=== PATIENT | male | born 1945 | race Caucasian/White ===

== ENCOUNTER 2018-12-23 09:54 | Emergency (ER) | payer OTHER ==
[2018-12-23 10:26] LABS: #Basophils 0.1 thou/uL (0.0-0.2); #Eosinphils 0.2 thou/uL (0.0-0.7); #Lymphocytes 1.6 thou/uL (1.20-3.40); #Monocytes 1.4 thou/uL (0.11-0.59); #Neutrophils 6.8 thou/uL (1.40-6.50); %Basophils 0.7 % (0.0-1.0); %Eosinophils 2.2 % (0.0-10.0); %Lymphocytes 15.9 % (21.0-51.0); %Monocytes 13.6 % (0.0-10.0); %Neutrophils 67.6 % (42.0-75.0); Hemoglobin 12.4 g/dL (14.0-18.0); Mean Corpuscular Hemoglobin 28.3 pg (27.0-31.0); Mean Corpuscular Volume 88.6 fL (78.0-98.0); Platelet Count 399 thou/uL (130-400); RBC Distribution Width 15.4 % (11.5-14.5); Red Blood Cell (RBC) Count 4.39 mill/uL (4.70-6.10)
--- NOTE | 2018-12-23 10:28 | RAD ---
Portable chest: HISTORY: Shortness of breath COMPARISON: none FINDINGS: Lung shaw are clear. Heart and mediastinum appear unremarkable. Vascularity is normal. Visualized osseous structures unremarkable. IMPRESSION: No acute finding
[2018-12-23 10:54] LABS: ALT (SGPT) 14 U/L (8-55); AST (SGOT) 17 U/L (5-34); Albumin 4.5 g/dL (3.4-4.8); Alkaline Phosphatase 94 U/L (40-150); Anion Gap 17 mmol/L (10-20); BUN (Urea Nitrogen) 47 mg/dL (8.4-25.7); Bilirubin, Total 0.7 mg/dL (0.2-1.2); Calc. Creatinine Clearance 0 mL/min (70-130); Carbon Dioxide 26 mmol/L (23-31); Chloride 100 mmol/L (98-107); Estimated GFR-MDRD 45; Globulin 3.2 g/dL (2.4-3.5); Glucose 148 mg/dL (83-110); Potassium 4.9 mmol/L (3.5-5.1); Protein, Total 7.7 g/dL (5.8-8.1); Sodium 138 mmol/L (136-145)
[2018-12-23] MEDS ORDERED: ISOVUE-370 76%-LOCM 1 ML ONE (11:30)
--- NOTE | 2018-12-23 11:56 | CT ---
CT NECK WITH CONTRAST: Date: 12/23/18 Multiple axial tomograms obtained through neck with IV enhancement. INDICATION: Pain and swelling around the left ear and corner of jaw on the left. 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 History of prior carotid stent placemen t. FINDINGS: The left parotid gland appears slightly edematous with hazy stranding. It is slightly larger than the right. The findings may represent mild parotiditis given the history of tenderness at this site. The re is no focal fluid or abscess collection. The left submandibular gland appears surgically absent. There are surgical changes in the left subman dibular region extending into the left neck. There is resection of the left submandibular gland. The right submandibular gland appears atrophic. Thyroid unremarkable. Nasopharynx unremarkable. Oropharynx unremarkable. Parapharyngeal space and retropharyngeal space unremarkable. Bilateral carotid stents. There is luminal narrowing in the left carotid stent, although both stents appear patent. No evidence of adenopathy. Degenerative changes in the cervical spine. Paranasal sinuses and mastoids are well aerated. IMPRESSION: 1. Left parotid gland is mildly edematous and there are hazy inflammatory changes. Consider left par otiditis. 2. Evidence of prior left radical neck dissection as per history. 3. Carotid stents with mild luminal narrowing in both stents, although both stents appear patent. Findings discussed with Dr. Parisi. CODE CR. POS: OFF
== END 2018-12-23 12:24 | disposition home or self-care (01) ==
LOC: ERS 09:54
DX: J20.9 Acute bronchitis, unspecified (principal); K11.20 Sialoadenitis, unspecified; E11.9 Type 2 diabetes mellitus without complications; Z86.73 Personal history of transient ischemic attack (TIA), and cerebral infarction without residual deficits; I25.10 Atherosclerotic heart disease of native coronary artery without angina pectoris; F43.10 Post-traumatic stress disorder, unspecified
CPT/HCPCS: 36415; 70491; 71045; 80053; 84484; 85025; 93005; 94640; 96360; 96361; J7620; Q9966

== ENCOUNTER 2019-06-25 16:40 | Emergency (ER) | payer MEDICARE ==
[2019-06-25 17:05] LABS: #Basophils 0.1 thou/uL (0.0-0.2); #Eosinphils 0.6 thou/uL (0.0-0.7); #Lymphocytes 3.2 thou/uL (1.20-3.40); #Monocytes 1.4 thou/uL (0.11-0.59); #Neutrophils 5.5 thou/uL (1.40-6.50); %Basophils 0.8 % (0.0-1.0); %Eosinophils 5.3 % (0.0-10.0); %Lymphocytes 29.6 % (21.0-51.0); %Monocytes 13.1 % (0.0-10.0); %Neutrophils 51.2 % (42.0-75.0); Mean Corpuscular HGB CONC 30.3 g/dL (32.0-36.0); Mean Corpuscular Hemoglobin 25.6 pg (27.0-31.0); Mean Corpuscular Volume 84.4 fL (78.0-98.0); Mean Platelet Volume 6.1 fL (7.4-10.4); Platelet Count 424 thou/uL (130-400); RBC Distribution Width 16.2 % (11.5-14.5); White Blood Cell (WBC) Count 10.7 thou/uL (4.8-10.8)
--- NOTE | 2019-06-25 17:21 | RAD ---
Chest 2 views HISTORY: Productive cough. COMPARISON: 12/23/2018. FINDINGS: Cardiac silhouette and pulmonary vasculature are unremarkable. Mediastinum is midline. No c onfluent airspace consolidation, pneumothorax, or pleural fluid are evident. There are degenerative changes of the thoracic spine on the lateral view. IMPRESSION: No active cardiopulmonary abnormalities are demonstrated.
[2019-06-25 17:34] LABS: ALT (SGPT) 11 U/L (8-55); AST (SGOT) 17 U/L (5-34); Alkaline Phosphatase 86 U/L (40-110); Anion Gap 11 mmol/L (10-20); BUN (Urea Nitrogen) 27 mg/dL (8.4-25.7); Bilirubin, Total 0.6 mg/dL (0.2-1.2); Calc. Creatinine Clearance 0 mL/min (70-130); Calcium 9.5 mg/dL (7.8-10.44); Carbon Dioxide 30 mmol/L (23-31); Chloride 99 mmol/L (98-107); Estimated GFR-MDRD 63; Globulin 3.7 g/dL (2.4-3.5); Glucose 106 mg/dL (83-110); Protein, Total 7.7 g/dL (5.8-8.1); Sodium 136 mmol/L (136-145)
[2019-06-25] MEDS ORDERED: methylPREDNISolone Sod Succ/PF 125 MG/2 ML VIAL ONE (18:21)
[2019-06-25] MEDS ORDERED: Azithromycin 500 MG VIAL ONE (18:21)
--- NOTE | 2019-06-25 20:30 | CT ---
CT HEAD NONCONTRAST: History: Fall. Head injury. FINDINGS: There is no evidence of acute intracranial hemorrhage or infarct. Mild diffuse cortical atrophy. [employer] Team Lead darwin ischemic small vessel disease throughout the periventricular white matter of each cerebral hemisp here. Small area of encephalomalacia along the posterior paramidline portion of the right cerebellar hemisphere likely represents an old area of infarct. There is no mass effect or shift of midline stru ctures. Visualized paranasal sinuses remain well aerated. IMPRESSION: Chronic type findings. No acute intracranial abnormalities are demonstrated. POS: BST
--- NOTE | 2019-06-29 05:39 | PQF ---
[facility] POST DISCHARGE CLINICAL DOCUMENTATION IMPROVEMENT CLARIFICATION FORM l Todays Date: 06/28/2019 l Patients Name Goyo Massey l l Admit Date 06/25/19 l Disch Date 06/25/19 Build Manager Name Opalbenita Reid Email: [email or web address]: [phone] To be completed by Build Manager: Present Clinical Indicators - Signs / Symptoms Results and Location in Medical Record [ ] Documentation of: [ ] [ ] Documentation of: [ ] [ ] Documentation of: [ ] [ ] Documentation of: [ ] [ ] Risks [ ] [ ] [ ] Treatment [ ] Bronchitis Query for Specificity of Acute or Chronic of Bronchitis. [ ] [ ] To be completed by Physician: DR. Brianne MD, Karl The documentation in this patients record requires clarification to ensure coding compliance and accuracy. Check the appropriate box and include in your discharge summary. [ ] [ ] [ ] [ ] Please check this box if this does not apply to this patient [ ] Unable to determine [ ] Other diagnosis: Review the following information and exercise your independent professional judgment in responding to the clarification. Based upon the clinical findings, risk factors, and treatment, please clarify if you are treating one of the above probable or suspected diagnoses. Physician Signature: Date Time MTDD
== END 2019-06-25 20:45 | disposition home or self-care (01) ==
LOC: ERS 16:40
DX: J20.9 Acute bronchitis, unspecified (principal); E11.9 Type 2 diabetes mellitus without complications; I25.10 Atherosclerotic heart disease of native coronary artery without angina pectoris; F43.10 Post-traumatic stress disorder, unspecified; Z86.73 Personal history of transient ischemic attack (TIA), and cerebral infarction without residual deficits; Z85.46 Personal history of malignant neoplasm of prostate
CPT/HCPCS: 36415; 70450; 71046; 80053; 83605; 84484; 85025; 93005; 94640; 94760; 96365; 96366; 96375; J0456; J2930; J7620

== ENCOUNTER 2019-07-17 14:05 | Outpatient (CLI) | payer MEDICARE, OTHER ==
--- NOTE | 2019-07-17 14:53 | RAD ---
RADIOGRAPH CHEST 2 VIEWS: DATE: 07/17/2019 HISTORY: 73-year-old male with dyspnea FINDINGS: There is no airspace density, pulmonary edema, pleural effusion, pneumothorax, or cardiomegaly. IMPRESSION: No acute cardiopulmonary findings.
== END 2019-07-17 14:06 | disposition home or self-care (01) ==
LOC: RAD 14:05
PROVIDERS: ATTEND Internal Medicine Pulmonary Disease
DX: R06.00 Dyspnea, unspecified (principal)
CPT/HCPCS: 71046

== ENCOUNTER 2019-07-18 05:47 | Day surgery (SDC) | payer MEDICARE, OTHER ==
[2019-07-17 16:53] VITALS: BMI 22.4
[2019-07-18] MEDS ORDERED: Lidocaine 4% PF 5 ML AMP NEB SCH (06:30)
[2019-07-18] MEDS ORDERED: Sodium Chloride 0.9% 1,000 ML IV SCH (06:30)
[2019-07-18] MEDS ORDERED: Lidocaine 1% (PF) 30 ML VIAL ONE (06:44)
[2019-07-18] MEDS ORDERED: Fentanyl 100 MCG/2 ML VIAL ONE (07:06)
[2019-07-18] MEDS ORDERED: Benzocaine 20% Spray 60 ML CAN ONE (07:06)
[2019-07-18] MEDS ORDERED: Midazolam HCl 2 mg/2 ml Vial ONE (07:06)
--- NOTE | 2019-07-18 07:42 | HP ---
HISTORY OF PRESENT ILLNESS: A 73-year-old gentleman who was referred by the [facility] with several months of history of intermittent hemoptysis. The patient is unable to give any history. He is weak. He is status post treatment for head and neck cancer diagnosed in the . He received radiation surgery and appropriate intervention at [facility]. He has coughed up bright red blood one or two times a week now for several months. He had a CT of his neck done, both locally and in [place], which was negative. He saw a local ENT physician and I am told they recommended at that time no additional workup. Additionally, he has had a PEG placed now for about a month at [facility] in [place], [place], because of his dysphagia. He has requested that he see a svp chief marketing officer and therefore he was sent to our office. He has lost considerable weight. PAST MEDICAL HISTORY: Long list of multiple medical problems are outlined including a long list of medications also outlined. 1. Chronic ischemic heart disease. 2. Peripheral vascular disease. 3. Diabetes. 4. Hypertension. 5. Reflux. 6. Hypothyroidism. 7. Anemia. 8. Hyperlipidemia. 9. Bilateral carotid stenosis, on Plavix. 10. Spondylosis, cervical. 11. Post-traumatic stress syndrome. 12. . HOME MEDICATIONS: Long list including; 1. Buspirone 10 mg two tablets per PEG three times a day. 2. Celexa 40 mg per PEG. 3. Plavix 75 mg per PEG. 4. Cyclobenzaprine 10 mg, PEG. 5. Gabapentin 100, PEG. 6. Hydrocortisone ointment. 7. Insulin. 8. Synthroid 0.075. 9. Lisinopril 2.5. 10. Metformin 500 once a day. 11. Metoprolol 50 twice a day. 12. Nitroglycerin 0.3. 13. Omeprazole p.r.n. 14. Simvastatin 80. PAST SURGICAL HISTORY: Previous surgeries, radical neck, prostate, cardiac stents, PEG tube, skin cancer, carotid stents. SOCIAL HISTORY: Smoked in the past, quit smoking in the 60s. No alcohol. ALLERGIES: NO ALLERGIES. REVIEW OF SYSTEMS: Negative. PHYSICAL EXAMINATION: VITAL SIGNS: 97% sat on room air, pulse , blood pressure 120/80. GENERAL: In no distress. CHEST: Decreased breath sounds. No wheezing. CARDIAC: Normal S1, S2. No gallops. ABDOMEN: Soft. IMAGING: Chest x-ray was normal. ASSESSMENT: 1. Intermittent hemoptysis. 2. Previous head and neck cancer, recent PEG. 3. Peripheral vascular disease, diabetes, and coronary artery disease. PLAN: Diagnostic bronchoscopy in the morning. Other recommendations as above. Job ID: [id number]
--- NOTE | 2019-07-18 09:51 | OP ---
DATE OF PROCEDURE: 07/18/2019 INDICATIONS: 1. Recurrent hemoptysis, seven months' duration without any endobronchial disease. 2. No endobronchial disease, blood, or pus was seen in both lungs. 3. His left local cord appeared to be atrophied, appeared to be partially paralyzed. DESCRIPTION OF PROCEDURE: After informed consent from the patient and , the patient received DuoNeb with 4 mL of 4% lidocaine. During the procedure, he received only 1 mg of Versed. His throat and nose were prepped with lidocaine. Cetacaine was sprayed. The flexible video bronchoscope Olympus was passed by the right nostril. Pharynx and hypopharynx were visualized. There were some secretions, frothy milky in nature. No bleeding was seen. No lesion was seen. His left vocal cord was atrophied and appeared to be partially paralyzed. Right vocal cord appeared to be normal. Entering the trachea, this was normal. Leisa was sharp. Right lung was inspected initially. Right upper and right middle lobe were visualized. No endobronchial obstruction, blood, or pus was seen. Area was lavaged with normal saline until clear. Left lung was inspected thereafter. Left upper and left lower lobe were visualized without any endobronchial obstruction, blood, or pus. This was also lavaged with normal saline until clear. The patient otherwise tolerated the procedure well. The washings will be sent for AFB smear and culture, routine Gram stain, C and S, acid-fast stain, culture and cytology He tolerated the procedure well. This was reviewed with the patient and family. He is encouraged to see an ENT physician at some time. Job ID: [id number] [facility]
== END 2019-07-18 09:25 | disposition home or self-care (01) ==
LOC: SDC 05:47
PROVIDERS: ATTEND Internal Medicine Pulmonary Disease
PROC: 0BJ08ZZ Inspection of Tracheobronchial Tree, Via Natural or Artificial Opening Endoscopic (ICD-10-PCS; principal; 2019-07-18)
DX: R04.2 Hemoptysis (principal); I10 Essential (primary) hypertension; I25.10 Atherosclerotic heart disease of native coronary artery without angina pectoris; I73.9 Peripheral vascular disease, unspecified; I65.23 Occlusion and stenosis of bilateral carotid arteries; E03.9 Hypothyroidism, unspecified; E11.9 Type 2 diabetes mellitus without complications; E78.5 Hyperlipidemia, unspecified; D64.9 Anemia, unspecified; K21.9 Gastro-esophageal reflux disease without esophagitis; Z79.4 Long term (current) use of insulin; Z79.899 Other long term (current) drug therapy; Z86.73 Personal history of transient ischemic attack (TIA), and cerebral infarction without residual deficits; Z87.891 Personal history of nicotine dependence; Z85.828 Personal history of other malignant neoplasm of skin; Z95.5 Presence of coronary angioplasty implant and graft
CPT/HCPCS: 36416; 87070; 87077; 87102; 87116; 87205; 87206; 88112; 88305; 99152; J2001; J2250; J3010